=== PATIENT | male | born 1985 | race Caucasian/White ===

== ENCOUNTER 2021-10-03 03:12 | Emergency (ER) | payer SELFPAY ==
[~2021-10-03] VITALS: Ht 185.4 cm; Wt 98.6 kg
[2021-10-03 05:06] LABS: APPEARANCE, URINE CLEAR (CLEAR); BACTERIA, URINE AUTO NEGATIVE (NEGATIVE); BILIRUBIN, URINE AUTO NEGATIVE (NEGATIVE); BLOOD, URINE BLOOD NEGATIVE (NEGATIVE); COLOR, URINE YELLOW (YELLOW); GLUCOSE, URINE (UA) AUTO NEGATIVE (NEGATIVE); KETONE, URINE AUTO 2+ mg/dL (NEGATIVE); LEUKOCYTE ESTERASE, URINE AUTO NEGATIVE (NEGATIVE); MUCUS, URINE MODERATE (NEGATIVE); NITRITE, URINE AUTO NEGATIVE (NEGATIVE); PROTEIN, URINE AUTO 1+ mg/dL (NEGATIVE); RBC, URINE AUTO 1 /HPF (0-3); SPECIFIC GRAVITY URINE AUTO 1.025 (1.002-1.035); SQUAMOUS EPITHELIAL CELL UR AU 0 /HPF (0-6); WBC, URINE AUTO 2 /HPF (0-3)
[2021-10-03] MEDS ORDERED: NS 1,000 ML IV ONE (05:55)
[2021-10-03 06:23] LABS: BASO % 0.2 % (0.0-1.0); EOS % 0.2 % (0.0-3.0); HEMATOCRIT 44.6 % (42.0-52.0); HEMOGLOBIN 15.9 g/dl (13.5-17.5); LYMPH # 2.7 10^3/uL (1.5-5.0); LYMPH % 22.6 % (24.0-44.0); MEAN CORPUSCULAR HEMOGLOBIN 28.6 pg (27.0-33.0); MEAN CORPUSCULAR HGB CONC 35.7 g/dl (32.0-36.5); MEAN CORPUSCULAR VOLUME 80.4 fl (80.0-96.0); MONO # 1.3 10^3/uL (0.0-0.8); MONO % 10.5 % (2.0-8.0); NEUTROPHILS % 66.2 % (36.0-66.0); PLATELET COUNT, AUTOMATED 302 10^3/uL (150-450); RED BLOOD COUNT 5.55 10^6/uL (4.30-6.10); WHITE BLOOD COUNT 12.1 10^3/uL (4.0-10.0)
[2021-10-03] MEDS ORDERED: ONDANSETRON 4MG/2ML VIAL IV ONE (06:45)
[2021-10-03 06:46] LABS: ALT/SGPT 42 U/L (12-78); BILIRUBIN,DIRECT 0.3 MG/DL (0.0-0.2); BILIRUBIN,TOTAL 0.9 MG/DL (0.2-1.0); BLOOD UREA NITROGEN 19 MG/DL (7-18); CALCIUM LEVEL 9.8 MG/DL (8.5-10.1); CARBON DIOXIDE LEVEL 25 MEQ/L (21-32); CHLORIDE LEVEL 100 MEQ/L (98-107); CREATININE FOR GFR 1.27 MG/DL (0.70-1.30); GLOMERULAR FILTRATION RATE > 60.0 (>60); GLUCOSE, FASTING 123 MG/DL (70-100); LIPASE 57 U/L (73-393); POTASSIUM SERUM 3.9 MEQ/L (3.5-5.1); SODIUM LEVEL 134 MEQ/L (136-145); TOTAL PROTEIN 8.2 GM/DL (6.4-8.2)
[2021-10-03] MEDS ORDERED: PANTOPRAZOLE 40MG VIAL (C9113 PER 1) IV ONE (07:20)
[2021-10-03] MEDS ORDERED: ISOVUE-370 76% 100ML VIAL As Ordered ONE (08:01)
[2021-10-03 08:31] VITALS: BP 123/67
[2021-10-03] MEDS ORDERED: ONDA4TAB6 PO (08:51)
[2021-10-03] MEDS ORDERED: SUCR1TA PO (08:51)
[2021-10-03] MEDS ORDERED: PROT1TAB2 PO (08:51)
== END 2021-10-03 09:32 | disposition home or self-care (01) ==
LOC: M ED 03:12
DX: U07.1 COVID-19 (principal); R11.2 Nausea with vomiting, unspecified; K29.80 Duodenitis without bleeding; K21.9 Gastro-esophageal reflux disease without esophagitis; F12.10 Cannabis abuse, uncomplicated
CPT/HCPCS: 74177; 80048; 80076; 81001; 83690; 85025; 87798; 93041; 96361; 96374; 96375; 99284; C9113; J2405; Q9967